=== PATIENT | female | born 1970 | race Caucasian/White ===

== ENCOUNTER 2021-09-19 12:20 | Outpatient (CLI) | payer OTHER, SELFPAY ==
--- NOTE | ~2021-09-19 | MR_ITS ---
EXAMINATION: MR brain/brain stem wo con DATE: 09/19/2021 13:19 INDICATION: Unsteady gait. Bilateral arm and hand weakness and numbness. TECHNIQUE: Magnetic resonance imaging (MRI) of the brain and brainstem was performed without intraven ous contrast. Sequences included sagittal and axial T1-weighted FLAIR, axial T1-weighted FSE, axial d iffusion-weighted FS EPI, sagittal T2-weighted FLAIR, axial T2*-weighted GRE, axial T2-weighted FLAIR Propeller, and axial T2-weighted Propeller. Apparent diffusion coefficient (ADC) maps were created. COMPARISON: None. FINDINGS: There is no intracranial hemorrhage, acute infarction, or abnormal intracranial mass lesion . The ventricles are normal in size. The paranasal sinuses are clear. The orbits are normal. There is a trace left mastoid effusion. IMPRESSION: 1. Normal brain. Reviewed, dictated and finalized at location A. IMPRESSION: 1. Normal brain.
--- NOTE | ~2021-09-19 | MR_ITS ---
EXAMINATION: MR lumbar spine wo con DATE: 09/19/2021 13:22 INDICATION: Low back pain. TECHNIQUE: Magnetic resonance imaging (MRI) of the lumbar spine was performed without intravenous con trast. Sequences included sagittal T2-weighted FSE, sagittal T2-weighted FS FSE, sagittal T1-weighted FSE, and axial T2-weighted FSE. COMPARISON: None FINDINGS: There is 8 degrees levocurvature of lumbar spine. Vertebral body heights are normal. There is mildly decreased disc height at L2-L3 and L3-L4 and moderately decreased disc height at L4-L5 with endplate remodeling. The distal spinal cord signal intensity is normal. The conus medullaris is at L 1. There is a Tarlov cysts at S2. Partially visualized is a 3.9 cm cyst in right ovary. The following disc levels are specifically discussed: L1-L2: The disc does not extend beyond the endplate margin. There is mild bilateral facet joint osteo arthritis. There is no neural foraminal stenosis. There is no central canal stenosis. L2-L3: The disc does not extend beyond the endplate margin. There is mild bilateral facet joint osteo arthritis. There is no neural foraminal stenosis. There is no central canal stenosis. L3-L4: The disc is bulging and has an annular fissure. There is mild bilateral facet joint osteoarthr itis. There is no neural foraminal stenosis. There is mild central canal stenosis. L4-L5: The disc is bulging and has an annular fissure. There is mild bilateral facet joint osteoarthr itis. There is mild bilateral neural foraminal stenosis. There is mild central canal stenosis. L5-S1: The disc is bulging. There is moderate right and severe left facet joint osteoarthritis. There is mild left neural foraminal stenosis. There is mild central canal stenosis. IMPRESSION: 1. Moderate lumbar spondylosis. 2. Partially visualized 3.9 cm cyst in right ovary, most likely a follicular cyst. Reviewed, dictated and finalized at location A. IMPRESSION: 1. Moderate lumbar spondylosis. 2. Partially visualized 3.9 cm cyst in right ovary, most likely a follicular cy st.
== END 2021-09-19 12:21 ==
LOC: MICIMG 12:22
PROVIDERS: PCP Internal Medicine; Visit Provider Internal Medicine Rheumatology
DX: M54.50 Low back pain, unspecified (principal); R26.81 Unsteadiness on feet; M47.896 Other spondylosis, lumbar region; N83.201 Unspecified ovarian cyst, right side
CPT/HCPCS: 70551; 72148

== ENCOUNTER 2022-04-06 10:38 | Outpatient (CLI) | payer OTHER, SELFPAY ==
--- NOTE | ~2022-04-06 | MMUS_ITS ---
EXAMINATION: MM diagnostic berta RT w rob, US breast RT limited HISTORY: Follow-up right breast mass TECHNIQUE: Additional 3-D tomosynthesis images of the right breast were performed and synthetic 2-D i mages were generated. CAD analysis was submitted and interpreted. High resolution Limited right breas t ultrasound was performed. COMPARISON: 03/23/2022 BREAST PARENCHYMAL COMPOSITION: Breast composed of scattered areas of fibroglandular density FINDINGS: MAMMOGRAPHIC FINDINGS: There is a small circumscribed mass in the upper inner quadrant of the right breast posteriorly with central areas of lucency measuring 6 x 4 mm. No suspicious calcifications or architectural distortion in the right breast. ULTRASOUND: Limited right breast ultrasound: Normal heterogeneous echotexture without focal mass. IMPRESSION: 1. Probable benign right breast mass, upper inner quadrant posteriorly. No sonographic correlate iden tified. 2. Recommend 6 month follow-up diagnostic right mammogram BI-RADS category 3, probably benign findings. Reviewed, dictated and finalized at location A. IMPRESSION: 1. Probable benign right breast mass, upper inner quadrant posteriorly. No sono graphic correlate identified. 2. Recommend 6 month follow-up diagnostic right mammogram BI-RADS category 3, probably benign findings.
== END 2022-04-06 10:39 | disposition home or self-care (01) ==
PROVIDERS: PCP Internal Medicine; Visit Provider Internal Medicine
DX: R92.8 Other abnormal and inconclusive findings on diagnostic imaging of breast (principal)
CPT/HCPCS: 76642; 77061; 77065; G0279

== ENCOUNTER 2022-10-08 11:41 | Outpatient (CLI) | payer OTHER, SELFPAY ==
--- NOTE | ~2022-10-08 | MMUS_ITS ---
EXAMINATION: MM diagnostic berta RT w rob, US breast RT complete HISTORY: Follow-up right breast mass TECHNIQUE: Additional 3-D tomosynthesis images of the right breast were performed and synthetic 2-D i mages were generated. CAD analysis was submitted and interpreted. High resolution complete right [facility] st ultrasound was performed. COMPARISON: None BREAST PARENCHYMAL COMPOSITION: Breast composed of scattered areas of fibroglandular density FINDINGS: MAMMOGRAPHIC FINDINGS: There are no suspicious masses, calcifications or architectural distortion in the right breast to sug gest malignancy. ULTRASOUND: Complete right breast US of all 4 quadrants of the breasts and retroareolar region was reviewed. Norm al heterogeneous echotexture without focal solid or cystic mass. IMPRESSION: 1. No evidence for malignancy in the right breast. No discrete mass identified. 2. Routine yearly screening mammogram and regular clinical breast examination are recommended. BI-RADS Category 1: Negative Reviewed, dictated and finalized at location A. BULK DRIVER IMPRESSION: 1. No evidence for malignancy in the right breast. No discrete mass identified. 2. Routine yearly screening mammogram and regular clinical breast examination a re recommended. BI-RADS Category 1: Negative
== END 2022-10-08 11:42 | disposition home or self-care (01) ==
LOC: ANHIMG 11:43
PROVIDERS: PCP Internal Medicine; Visit Provider Internal Medicine
DX: R92.8 Other abnormal and inconclusive findings on diagnostic imaging of breast (principal)
CPT/HCPCS: 76641; 76642; 77061; 77065; G0279

== ENCOUNTER 2024-03-25 14:03 | Outpatient (CLI) | payer OTHER, SELFPAY ==
--- NOTE | ~2024-03-25 | MM_ITS ---
EXAMINATION: MM screening [facility] BI w rob HISTORY: Screening TECHNIQUE: Craniocaudal and mediolateral oblique 3-D tomosynthesis images were obtained and synthetic 2-D images were generated. CAD analysis was submitted and interpreted. COMPARISON: Comparison to multiple prior studies sequentially, with oldest reviewed study dated 03/23. BREAST PARENCHYMAL COMPOSITION: There are scattered areas of fibroglandular density. FINDINGS: There is no evidence of suspicious mass, calcification, or architectural distortion to sugg est malignancy in either breast. There has been no suspicious interval change. IMPRESSION: 1. No mammographic evidence of malignancy. 2. Recommend routine screening mammography in one year. BI-RADS Category 1: Negative Reviewed, dictated and finalized at location B.
== END 2024-03-25 14:04 | disposition home or self-care (01) ==
LOC: ANHIMG 14:07
PROVIDERS: PCP Family Medicine; Visit Provider Family Medicine
DX: Z12.31 Encounter for screening mammogram for malignant neoplasm of breast (principal)
CPT/HCPCS: 77063; 77067

== ENCOUNTER 2025-04-02 15:01 | Outpatient (CLI) | payer MEDICARE, SELFPAY ==
--- NOTE | ~2025-04-02 | MM_ITS ---
EXAMINATION: MM screening berta BI w rob HISTORY: Screening TECHNIQUE: Craniocaudal and mediolateral oblique 3-D tomosynthesis images were obtained and synthetic 2-D images were generated. CAD analysis was submitted and interpreted. COMPARISON: Comparison to multiple prior studies sequentially, with oldest reviewed study dated 03/23. BREAST PARENCHYMAL COMPOSITION: Not dense: There are scattered areas of fibroglandular density. FINDINGS: There is no evidence of suspicious mass, calcification, or architectural distortion to sugg est malignancy in either breast. There has been no suspicious interval change. IMPRESSION: 1. No mammographic evidence of malignancy. 2. Recommend routine screening mammography in one year. BI-RADS Category 1: Negative Reviewed, dictated and finalized at location A.
--- OUTSIDE RECORDS SUMMARY | 2025-04-02 15:18 | XMS_ITS | Patient Health Record ---
Author Organization [facility] Address [address] [address] Care Team Providers Care Deputy Court Clerk Name Role Phone Daphne Hurst APRN Unavailable [phone] Isi HADLEY, Monika Unavailable Unavailable Reason For Referral No Information Medications Medication SIG (Take, Route, Frequency, Duration) Notes Start Date End Date Status METFORMIN HYDROCHLORIDE 500 MG TABS 0 Source DrugName : METFORMIN HYDROCHLORIDE 500 MG TABS; Prescribed by : SIG : Active ATORVASTATIN CALCIUM 10 MG TABS 0 Source DrugName : ATORVASTATIN CALCIUM 10 MG TABS; Prescribed by : SIG : Active Augmentin 0 Source DrugName : Augmentin; Prescribed by : SIG : Take tablet by mouth twice a day for 10 days 04/01/2015 Active Probiotic Gummies 0 Source DrugNam e : Probiotic gummies; Prescribed by : SIG : Active Ranitidine HCl 150 MG Oral 150 Source DrugName : ranitidine HCl; Prescribed by : SIG : Take 1 tablet by mouth once a day at night for 90 days 12/16/2018 Active AMLODIPINE BESYLATE 2.5 MG TABS 0 Source DrugName : AMLODIPINE BESYLATE 2.5 MG TABS; Prescribed by : SIG : Active metroNIDAZOLE 500 MG Oral 0 Source Drug Name : metronidazole; Prescribed by : SIG : Active Kiswahili Ginseng 0 Source DrugName : Kiswahili Ginseng; Prescribed by : SIG : Active Biotin 0 Source DrugName : biotin; Prescribed by : SIG : Active Fish Oil 0 Source DrugName : Fish Oil; Prescribed by : SIG : Active Cipro 500 MG Oral 0 Source DrugName : Cipro; Prescribed by : SIG : Active Problems Problem Type SNOMED Code ICD Code Onset Dates Problem Status W/U Status Risk Notes Problem Flatulence, eructation and gas pain (857436852) Gas pain (R14.1) 2017 Active confirmed TE798-Xiz pain Problem Spasm (95702608) Cramp and spasm (R25.2) 2015 Active confirmed PL503-Mjand and spasm Problem Bloating symptom (369315857) Bloating symptom (R14.0) 2015 Active confirmed IV776-Kvssosvf symptom Problem Hiatal hernia (05901463) Hiatal hernia (K44.9) 2018 Active confirmed JR553-Xhnwgq Hernia Problem Diverticulosis of colon without diverticulitis (340807853) Diverticulosis of colon without diverticulitis (K57.30) 2017 Active confirmed XO809-Mojcgylwei osis of colon without diverticulitis Problem Constipation (40329392) Constipation (K59.00) 2014 Active confirmed KZ292-Zwnuucksnh on Problem Diverticular disease of colon (041914392) Diverticular disease of colon (K57.30) 2018 Active confirmed RL121-Tkatyfwloi ar disease of colon Problem Left lower quadrant pain (881076521) Abdominal Pain LLQ (R10.32) 2015 Active confirmed UY581-Qgrqgoryo Pain LLQ Problem Pre-procedure evaluation check (143207151) Preoperative examination, unspecified EGD for gastric sleeve (Z01.818) 2017 Active confirmed LS890-Kgxetrumhl ve examination, unspecified EGD for gastric sleeve Problem Family history of malignant neoplasm of gastrointestinal tract (398976323) Family history of malignant neoplasm of gastrointestina l tract- father had Stomach cancer (Z80.0) 2018 Active confirmed LD807-Mzuyrk history of malignant neoplasm of gastrointestinal tract- Father had Stomach cancer Problem Diverticulitis of colon (958207555) Recurrent Diverticulitis- improved (K57.92) 2014 Active confirmed SX893-Xxnegfidx Diverticulitis- improved Problem Left upper quadrant pain (975842376) Abdominal Pain LUQ +++ (R10.12) 2014 Active confirmed BF787-Fmugevlue Pain LUQ +++ Problem Dyspepsia (246891899) Dyspepsia (K30) 2017 Active confirmed PD831-Weczkewrv Problem Generalized abdominal pain (527143142) Abdominal pain, generalized- lower (R10.84) 2014 Active confirmed RS662-Rmwcycwlw pain, generalized- lower Problem Diarrhea (41487423) Diarrhea- loose stool, no mucus or bleeding (R19.7) 2015 Active confirmed SI464-Fldoaupm- loose stool, no mucus or bleeding Plan Of Treatment No Information Medical (General) History Surgical History Surgery Date(Month/Year) Spinal fusion 2009 Thyroidectomy, 01/2016 Hysterectomy-2010 Brain surgery 06/2010
--- OUTSIDE RECORDS SUMMARY | 2025-04-02 15:18 | XMS_ITS | Data Portability ---
Author Organization [facility] [facility] Address [address] [place] [address] Assessment No assessment recorded. Plan of Treatment Reminders Order Date Submit Date Provider Last Modified By Organization Details Last Modified Time Details Appointments None recorded. Lab ca 125, serum 2021 [facility], [address] [facility], [place], [address], 10:06:39 bacterial vaginosis + vaginitis panel, vaginal 2021 [employer] [facility], [address] [place], [address], 17:55:54 Referral None recorded. Procedures None recorded. Surgeries None recorded. Imaging None recorded. Medication Orders None recorded. Patient TargetsNo targets recorded. Patient InstructionsNo instructions recorded. Reason for Referral None Reported. Results Created Date Observation Date Name Description Value Unit Range Abnormal Flag Note LastModifiedBy Organization Detail LastModifiedTime 01/26/2001/26/2022 CA 125 Ca 125 5 U/mL <35 normal This test was perfo rmed using the Omisem an CultureAlleyt er Chemi lumin escen t metho d. Value s obtai meaghan from diffe rent assay metho ds canno t be used inter stokes eably . CA 125 level s, regar dless of value , shoul d not be inter prete d as absol [place] evide nce of the prese nce or absen ce of disea se. Effec tive February 05, 2022, the Sieme ns CA 125 immun oassa y will repla ce the previ ous Beckm an Coult er metho d. For patie nts follo wed by seria l CA 125 testi ng, order code [id number] - CA 125, Re-ba fransisca fitzgerald will be avail able throu April 30, 2022 to kar t with trans ition to the new assay . Not Available [facility] [id number] , [place], [address], 01/26/2022 10:06:39 01/26/20 22 01/26/2022 VAGIN ITIS PANEL bacterial vaginosis BV neg negati ve Not Available [address], [address], 01/26/2022 17:55:54 01/26/20 22 01/26/2022 VAGIN ITIS PANEL carlton species C. spp neg negati ve Not Available [address], [address], 01/26/2022 17:55:54 01/26/20 22 01/26/2022 VAGIN ITIS PANEL carlton glabrata C. gla neg negati ve Not Available [address], [address], 01/26/2022 17:55:54 01/26/20 22 01/26/2022 VAGIN ITIS PANEL trichomonas vaginalis CV/TV TRICH neg negati ve Not Available [address], [address], 01/26/2022 17:55:54 Result Notes None recorded. Procedures Surgical History Date Name Laterality Status Provider Name and Address Organization Details Recorded Time 11/25/19 21 Most Recent Mammogram completed [facility] 01/25/2022 14:43:56 hysterectomy completed [facility] 01/25/2022 14:46:12 thyroidectomy completed [facility] 01/25/2022 14:46:36 Imaging Results None recorded. Procedure Notes None recorded. Medical Equipment None Reported. Allergies No known drug allergies Medications Name Sig Start Date Stop Date Status Note LastModified by Organization Details LastModified Time fluconazole 150 mg tablet 01/25 completed Not Available Not Available Not Available gabapentin 100 mg capsule 01/25 completed Not Available Not Available Not Available diazepam 10 mg tablet 01/25 completed Not Available Not Available Not Available triamcinolone acetonide 0.1 % lotion 01/25 completed Not Available Not Available Not Available methylprednisolo ne 4 mg tablets in a dose pack 01/25 completed Not Available Not Available Not Available mometasone 0.1 % topical cream 01/25 completed Not Available Not Available Not Available duloxetine 30 mg capsule,delayed release 01/25 completed Not Available Not Available Not Available Vitals Date Recorded Body height Body mass index (BMI) Body weight Body temperature Systolic blood pressure Diastolic blood pressure Provider Name and Address Organization Details Last Updated DateTime 165.1 cm 38.3 kg/m2 379576. 89 g 97.9 [degF] 130 mm[Hg] 76 mm[Hg] Graciela Mauricio [employer] [facility] 14:42:09 Social History Question Answer Notes LastModified by Organizat ion Details LastModified Time Tobacco Smoking Status Former Smoker Graciela arauz, [employer] [facility] 01/25/2022 14:45:38 What Is Your Level Of Alcohol Consumption? None [email or web address] Information not available 01/25/2022 When Did You Quit Smoking? 16+yearssince lastcigarolu [email or web address] Information not available 01/25/2022 How Many Children Do You Have? 2 Information not available 01/25/2022 What Is Your Relationship Status? Information not available 01/25/2022 Are You Sexually Active? No Information not available 01/25/2022 Do You Use Any Illicit Or Recreational Drugs? No [email or web address] Information not available 01/25/2022 Sex: Unknown Functional Status None recorded. Mental Status None recorded. Family History Relationship Description Onset Age of this Age Resolved Age Notes LastModified by Organization Details LastModified Time Maternal Grandmother Malignant neoplasm of lung freddy Not available 01/25 14:44:59 Father Malignant tumor of stomach freddy Not available 01/25 14:45:10 Medical History Condition Response Other Cancer N High Blood Pressure N Colon Cancer N Cytomegalovirus N Hyperthyroidism N MRSA N Blood Transfusion N Herpes (HSV) N Breast Cancer N Lung Cancer N Depression N Hypothyroidism N Incontinence N Panic Attacks N Neurological Disorder N Deep Vein Thrombosis N Anxiety Disorder N Autoimmune disease N Arthritis N Shingles N Tuberculosis/Positive PPD N Polycystic Ovarian Syndrome N Cervical Cancer N Hematuria N Chlamydia N Varicosities N Stroke N Seasonal allergies N Crohn's Disease N Alzheimer's/Dementia N COPD/Emphysema N Endometriosis N HPV/Genital Warts N IBS (Irritable Bowel Syndrome) N History of Abnormal Pap N High Cholesterol N Liver Disease N Fibromyalgia N Kidney Infection N Ulcer N Kidney Disease N HIV N Gallbladder disease N Sickle Cell Disease/Trait N Von Willebrand disease N ADD/ADHD N Eating Disorder N Anemia N Diabetes Mellitus (non-insulin dependent ) N Ovarian Problems N Multiple Sclerosis N Gonorrhea N Frequent Urinary Tract infections N Osteopenia N Headaches/migraines N GERD (reflux) N Ovarian Cancer N Diabetes (insulin dependent) N Seizures/Epilepsy N Fibroids N Heart Attack N Asthma N Lupus N Endometrial Cancer N Rubella N Blood Clotting Disorder N Bipolar Disorder N Diabetes Mellitus (during ) N Ulcerative Colitis N Hepatitis N Heart Disease N Pulmonary Embolism N RPR N Chicken Pox N Osteoporosis N Gynecological History Statement/Question Response Date of Last Pap Smear Most Recent Mammogram 11/25/2020 Current Control Method Hysterectom y Age at Menarche 12 Obstetrics History GPAL:G 2 P 2 0 0 2 Type Value Full Term 2 Living 2 Total 2 Past Encounters Encounter ID Performer Location Encounter Start Date Encounter Closed Date Diagnosis/Indication Diagnosis SNOMED-CT Code Diagnosis ICD10 Code Diagnosis Note [id number] Vinita Brown MD [facility] [address] [place] [address] 01/25/2022 14:21:15 01/26/2022 11:02:35 Pain in pelvis 81769271 R10.2 Bilateral complex ovarian cyst 0556972554 1305148 N83.292 N83.291 Infection screening 0424 [address]108 Z11.9 Health Concerns Section Related Observation LastModified by Organization Detai ls LastModified Time None Recorded Concern Status LastModified by Organization Details LastModified Time None Recorded Advance Directives Directive None Recorded Payers Insurance Date Sequence Insurance Name Policy Number Policy Barrera Covered Member ID Barrera Member ID Guarantor Name 01/25/2022 1 [facility] (MEDICARE REPLACEMENT HMO) [id number] Cody Lombardi Fernando [id number] Cody King 01/25/2022 1 [employer] Cody Gabriel Fernando [id number] Cody King Notes Date Note Type Note Provider Name and Address Organization Details Recorded Time 01/25/2022 text/html Pelvic PainReported bypatient.Location :bilateral Onset/Timin-6 months Duration:constant Quality:sharp; aching; cramping Severity:moderate Alleviating Factors:none Associated Symptoms:no vaginal discharge; no pain with urination; normal emptying of bladder; no blood in the urine; normal libido; no fever; no nausea; no vomiting; no nocturia; no sexual abuse; no ectopic pregnancies; no endometriosis; no urinary frequency; no vaginal itching or irritation; no dyspareunia;consti pation;diarrhea;fe elings of urgencyNotes:u/s @ [place] showed bilateral ovarian cysts Cody here for pelvic pain, had pelvic U/S at [facility] [place], [address], [facility] 01/26/2022 08:10:12 OBGyn Episode No OBEpisode recorded.
--- OUTSIDE RECORDS SUMMARY | 2025-04-02 15:19 | XMS_ITS | Clinical Summary ---
Author Organization [facility], formerly [facility] Address [address] [place] [address] Care Team Providers Care Botany Technician Name Role Phone Lynn Ellis UTILITY SALES AND SERVICE MANAGER-NEWSCAST DIRECTOR Primary Care Provider Source Comments [facility],non-owned Affiliates and Associated Physician Practices is amultiple site organization consisting of ambulatory clinics and hospital sitesin [place], [place], [place] and [place]. This disclosure is being madepursuant to the Care Everywhere program and may not contain all information available regarding this patient. Last updated 18.[facility] Allergies Active Allergy Reactions Criticality Noted Date Comments Kdc:Ascorbate+Biotin+Chlorid e+ Copper+Folic Acid+Iodine+Magnesium+... Other High 07/22/2023 A Cat Hair Extract Itching High 10/23/2018 Dog Epithelium Itching 07/22/2023 Iodine Itching 12/28/2009 Lactase Nausea and/or Vomiting 07/22/2023 Nsaids Other High 02/13/2019 L Medications * Be aware that medications may not be up to date on this document. Alwaysverify current medications with the patient. Semaglutide(0.2 5 or 0.5MG/DOS) 2 MG/1.5ML Solution Pen-injector INJECT 0.5 MG ONCE A WEEK FOR FOUR WEEKS 2 Active albuterol HFA (Proventil; Ventolin; Proair) 108 (90 Base) MCG/ACT inhaler Inhale 2 (two) puffs by mouth every 6 hours as needed 2 Active lidocaine (Lidoderm) 5 % patch APPLY 1 PATCH TOPICALLY ONE TIME EACH DAY FOR 6 DAYS. REMOVE AND DISCARD PATCH WITHIN 12 HOURS DIRECTED 3 Active Multiple Vitamins-Minera ls (Multi Vitamin/Mineral s) TABS Take 1 (one) tablet by mouth once daily Active predniSONE (Deltasone) 50 MG tablet TAKE 1 TABLET BY MOUTH ONE TIME EACH DAY FOR 5 DAYS 3 Active Active Problems Problem Noted Date Diagnosed Date Fibroids 07/22/2023 07/22/2023 Acquired scoliosis 07/22/2023 07/22/2023 Asthma 07/22/2023 07/22/2023 Chronic obstructive pulmonary disease, unspecifi ed 07/22/2023 07/22/2023 H/O gastric sleeve 2022 07/22/2023 Overview (07/22/2023): Added automatically from request for surgery [id number] Bilateral carpal tunnel syndrome 01/11/2022 07/22/2023 Chronic midline low back pain without sciatica 1 01/22/2021 07/22/2023 History of fusion of cervical spine 08/08/2021 07/22/2023 Family History Medical History Relation Name Comments Diabetes - Type 2 Mother Brain Tumor Son Relation Name Status Comments Mother Son Alive Social History Tobacco Use Types Packs/Day Years Used Date Smoking Tobacco: Former Cigarettes 0.5 15 0 05/03/1995 - 05/03/2010 Smokeless Tobacco: Never Alcohol Use Standard Drinks/Week Comments Yes 1 (1 standard drink = 0.6 oz pur e alcohol) ONCE EVERY 6 MONTHS Comments No Sex and Gender Information Value Date Recorded Sex Assigned at Not on file Legal Sex Female 2:38 PM CDT Gender Identity Not on file Sexual Orientation Not on file Last Filed Vital Signs Vital Sign Reading Time Taken Comments Blood Pressure 124/68 08/26/2023 8:30 AM CDT Pulse 98 08/26/2023 8:30 AM CDT Temperature 36.6 C (97.9 F) 08/26/2023 8:30 AM CDT Respiratory Rate - - Oxygen Saturation 96% 08/26/2023 8:30 AM CDT Inhaled Oxygen Concentration - - Weight 87.4 kg (192 lb 9.6 oz) 08/26/2023 8:30 A M CDT Height 165.1 cm (5' 5 ) 08/26/2023 8:30 AM CDT Body Mass Index 32.05 08/26/2023 8:30 AM CDT Plan of Treatment Health Maintenance Due Date Last Done Comments COLOGUARD (AGES 45-75) - COL ON CA SCREENING 1971 COLON MONITORING 1971 COLONOSCOPY - COLON CA SCREENING 1971 CT COLONOGRAPHY - COLON CA SCREENING 1971 Colorectal Cancer Screening 1971 FIT - COLON CA SCREENING 1971 FLEX SIG - COLON CA SCREENING 1971 MAMMOGRAM 1971 MEDICARE AWV 12 MONTHS 1971 PAP SMEAR 1971 HIV SCREENING 1986 HEPATITIS C SCREENING 02/15/1989 DTAP/TDAP/TD VACCINES (1 - Tdap) 1990 HEPATITIS B VACCINE (1 of 3 - 19+ 3-dose series) 1990 PNEUMOCOCCAL VACCINE 50+ (1 of 2 - PCV) 1990 ZOSTER VACCINE (1 of 2) 2021 SCREENING FOR DIABETES 07/22/2023 COVID-19 VACCINE (1 - 2023-2 5 season) 2024 DEPRESSION SCREENING 11/25/2024 INFLUENZA VACCINE (Season Ended) 2025 10/05/2021, 10/11/2020, 09/24/2019 LIPID TESTING 12/11/2027 12/11/2022 HIB VACCINE Aged Out No longer eligi ble based on patient's age to complete this topic HPV VACCINE Aged Out No longer eligi ble based on patient's age to complete this topic MENINGOCOCCAL (Group B) VACCINE SHARED DECISION-MAKING Aged Out No longer eligible based on patient's age to complete this topic MENINGOCOCCAL GROUPS A/C/Y/W VACCINE Aged Out No longer eligible b ased on patient's age to complete this topic Insurance [facility] MEDICARE [employer] GOLD PLUS HMO HUMANA GOLD PLUS HMO HUMANA GOLD PLUS HMO ESSENCE MEDICARE [place] MEDICARE MEDICAID - OUT OF STATE MEDICARE MEDICAID - OUT OF STATE MEDICARE MEDICAID - OUT OF STATE [facility] MEDICARE MEDICAID - OUT OF STATE Care Teams Botany Technician Relationship Specialty Start Date End Date Lynn Ellis, UTILITY SALES AND SERVICE MANAGER-NEWSCAST DIRECTOR [address] [place] [id number] PCP - General 01/03/23
== END 2025-04-02 15:02 | disposition home or self-care (01) ==
LOC: ANHIMG 15:16
PROVIDERS: PCP Family Medicine; Visit Provider Nurse Practitioner Family
DX: Z12.31 Encounter for screening mammogram for malignant neoplasm of breast (principal)
CPT/HCPCS: 77063; 77067